=== PATIENT | female | born 1955 | race Caucasian/White ===

== ENCOUNTER → 2018-06-11 08:20 | Outpatient (CLI) | payer OTHER, SELFPAY ==
--- NOTE | 2018-06-11 | DI.MG.S_ITS ---
BILATERAL DIGITAL SCREENING MAMMOGRAM 3D/2D WITH CAD: 06/11/2018 CLINICAL: Routine screening. Comparison is made to exams dated: 08/14/2016 mammogram, 10/30/2014 mammogram, and 06/23/2012 mammogram - [facility]. The tissue of both breasts is heterogeneously dense. This may lower the sensitivity of mammography. Current study was also evaluated with a Computer Aided Detection (CAD) system. No significant masses, calcifications, or other findings are seen in either breast. There has been no significant interval change. IMPRESSION: NEGATIVE There is no mammographic evidence of malignancy. A 1 year screening mammogram is recommended. This exam was interpreted at Station ID: [id number]. NOTE: For mammograms, a report in lay terms will be sent to the patient. Approximately 15% of breast malignancies will not be visualized mammographically. In the management of a palpable breast mass, a negative mammogram must not discourage biopsy of a clinically suspicious lesion. Electronically Signed By: Wyatt hoff/daniel:06/11/2018 13:57:19 letter sent: Normal Exam ACR BI-RADS Category 1: Negative 3341F
== END ==
PROVIDERS: PCP Family Medicine; Visit Provider Family Medicine
DX: Z12.31 Encounter for screening mammogram for malignant neoplasm of breast (principal)
CPT/HCPCS: 77063; 77067

== ENCOUNTER → 2020-06-16 13:33 | Outpatient (CLI) | payer OTHER, SELFPAY ==
--- NOTE | 2020-06-16 13:38 | DI.MG.S_ITS ---
BILATERAL DIGITAL SCREENING MAMMOGRAM 3D/2D WITH CAD: 06/16/2020 Comparison is made to exams dated: 06/11/2018 mammogram, 08/14/2016 mammogram, and 10/30/2014 mammogram - [facility]. The tissue of both breasts is heterogeneously dense. This may lower the sensitivity of mammography. Current study was also evaluated with a Computer Aided Detection (CAD) system. No significant masses, calcifications, or other findings are seen in either breast. There has been no significant interval change. IMPRESSION: NEGATIVE There is no mammographic evidence of malignancy. A 1 year screening mammogram is recommended. This exam was interpreted at Station ID: [id number]. NOTE: For mammograms, a report in lay terms will be sent to the patient. Approximately 15% of breast malignancies will not be visualized mammographically. In the management of a palpable breast mass, a negative mammogram must not discourage biopsy of a clinically suspicious lesion. Electronically Signed By: Ana Luisa johnson/daniel:06/18/2020 09:00:30 letter sent: Normal Exam ACR BI-RADS Category 1: Negative 3341F
== END ==
PROVIDERS: PCP Family Medicine; Referring Provider Family Medicine; Visit Provider Family Medicine
DX: Z12.31 Encounter for screening mammogram for malignant neoplasm of breast (principal)
CPT/HCPCS: 77063; 77067

== ENCOUNTER → 2020-09-12 10:07 | Outpatient (CLI) | payer OTHER, SELFPAY ==
[2020-09-12] MEDS: COVID-19 VACC #1, MRNA(MOD) 100 MCG/0.5 ML VIAL IM (10:17)
== END ==
PROVIDERS: PCP Family Medicine; Visit Provider Internal Medicine
DX: Z23 Encounter for immunization (principal)
CPT/HCPCS: 0011A; 91301

== ENCOUNTER → 2020-10-10 09:36 | Outpatient (CLI) | payer OTHER, SELFPAY ==
[2020-10-10] MEDS: COVID-19 VACC #2, MRNA(MOD) 100 MCG/0.5 ML VIAL IM (09:45)
== END ==
PROVIDERS: PCP Family Medicine; Visit Provider Internal Medicine
DX: Z23 Encounter for immunization (principal)
CPT/HCPCS: 0012A; 91301

== ENCOUNTER → 2023-08-20 11:40 | Outpatient (CLI) | payer MEDICARE, OTHER, SELFPAY ==
--- NOTE | 2023-08-20 11:43 | DI.MG.S_ITS ---
BILATERAL DIGITAL SCREENING MAMMOGRAM 3D/2D WITH CAD: 08/20/2023 CLINICAL: Routine screening. Comparison is made to exams dated: 06/16/2020 mammogram, 06/11/2018 mammogram, and 08/14/2016 mammogram - [facility]. Both breasts are heterogeneously dense, which may obscure small masses (category c / 51-75% glandular tissue). Current study was also evaluated with a Computer Aided Detection (CAD) system. No significant masses, calcifications, or other findings are seen in either breast. There has been no significant interval change. IMPRESSION: NEGATIVE There is no mammographic evidence of malignancy. A 1 year screening mammogram is recommended. Based on the Tyrer Cuzick model (a risk assessment model) the patient's lifetime risk is 9.6% and her 10 year risk is 4.8%. According to the ACR, ACS, and NCCN guidelines, an annual breast MRI exam along with mammogram is recommended if the patient's lifetime risk is 20% or greater. This exam was interpreted at Station ID: [id number]. NOTE: For mammograms, a report in lay terms will be sent to the patient. Approximately 15% of breast malignancies will not be visualized mammographically. In the management of a palpable breast mass, a negative mammogram must not discourage biopsy of a clinically suspicious lesion. Electronically Signed By: Andrea almodovar/daniel:08/20/2023 12:47:30 letter sent: Normal Exam ACR BI-RADS Category 1: Negative 3341F
== END ==
PROVIDERS: PCP Internal Medicine; Referring Provider Internal Medicine; Visit Provider Internal Medicine
DX: Z12.31 Encounter for screening mammogram for malignant neoplasm of breast (principal); R92.333 Mammographic heterogeneous density, bilateral breasts
CPT/HCPCS: 77063; 77067

== ENCOUNTER 2024-08-26 20:32 | Emergency (ER) | payer MEDICARE, OTHER, SELFPAY ==
[2024-08-26 20:40] VITALS: BP 147/79; PULSE 109; RESP 18; TEMP 36.4; O2SAT 94; BMI 28.3
--- NOTE | 2024-08-26 20:46 | EKG_ITS ---
[place] [address] [address] [place] [address] Test Date: 2024-08-26 Pat Name: Bonita Kasper Department: [facility] Room: Gender: Female Home Health Travel Ot: HAYDEN : 1955 Requested By: Order Number: [id number] Reading MD: Constantin Price Measurements Intervals [place] Rate: 100 P: 66 VA: 152 QRS: 78 QRSD: 78 T: 23 QT: 330 QTc: 425 Interpretive Statements Normal sinus rhythm Nonspecific ST abnormality Electronically Signed On 08-27-2024 18:31:42 PDT by Constantin Price
[2024-08-26] MEDS: MAG HYDROX/ALUMINUM/SIMETH SUS 20 ML, LIDOCAINE VISCOUS 2% 15 ML PO (21:02)
[2024-08-26 21:19] LABS: Add Manual Diff / Slide Review NO; Basophils Absolute Auto 100 /uL (0-100); Eosinophils Absolute Auto 100 /uL (0-450); Eosinophils Percent Auto 2.5 % (2-4); Hematocrit 38.1 % (36-46); Hemoglobin 13.1 g/dL (12.0-16.0); Lymphocytes Absolute Auto 1200 /uL (1100-4500); Lymphocytes Percent Auto 20.9 % (25-40); Mean Corpuscular HGB Conc 34.2 % (30-36); Mean Corpuscular Hemoglobin 30.5 PG (26-34); Mean Corpuscular Volume 89.1 fL (80-100); Monocytes Absolute Auto 400 /uL (0-900); Monocytes Percent Auto 6.9 % (3-14); Neutrophils Absolute Auto 4000 /uL (1500-7000); Neutrophils Percent Auto 68.7 % (50-75); Platelet Count 252 X10^3/uL (150-400); Red Blood Cell Count 4.28 X10^6/uL (4.0-5.2); Red Cell Distribution Width 13.2 % (11.6-14.8); White Blood Cell Count 5.8 X10^3/uL (4.5-11.0)
[2024-08-26 21:26] LABS: Alanine Aminotransferase 25 IU/L (<35); Albumin 4.2 g/dL (3.5-5.0); Albumin Globulin Ratio 1.5 (1.0-2.8); Alkaline Phosphatase 44 U/L (38-126); Aspartate Aminotransferase 30 IU/L (14-36); BUN Creatinine Ratio 14.3 (6-22); Bilirubin Total 0.6 mg/dL (0.2-1.3); Blood Urea Nitrogen 11 mg/dL (7-17); Calcium 9.4 mg/dL (8.4-10.2); Carbon Dioxide 23 mmol/L (22-32); Chloride 103 mmol/L (98-107); Creatine Kinase 70 U/L (30-135); Estimated Glomerular Filt Rate > 60 mL/min (>60); Globulin 2.8 g/dL (1.7-4.1); Glucose 192 mg/dL (80-110); HEMOLYSIS < 15 (0-50); Potassium 3.6 mmol/L (3.4-5.1); Sodium 134 mmol/L (137-145)
[2024-08-26 21:37] LABS: Troponin I < 0.012 ng/mL (0.01-0.034)
--- NOTE | 2024-08-26 21:49 | PC.NURSE ---
Pt states heart burn is now gone s/p GI cocktail
[2024-08-26 22:57] VITALS: BP 140/76; PULSE 81; O2SAT 95
[2024-08-26 23:00] VITALS: BP 133/72; PULSE 87; O2SAT 97
[2024-08-26 23:30] VITALS: BP 131/76; PULSE 82; O2SAT 97
--- NOTE | 2024-08-26 23:30 | ED_ITS ---
HPI - Nausea/Vomiting/Diarrhea General Chief complaint: Nausea/Vomiting/Diarrhea Stated complaint: Heartburn, nausea, loss of appetite 156/93 BP Time Seen by Provider: 08/26/24 23:30 Source: patient Mode of arrival: Ambulatory History of Present Illness HPI Narrative: 68-year-old female without any significant known past medical history presents to the emergency department from home for evaluation of heartburn x2 days. She states that she has a history of heartburn that normally resolves with Tums but symptoms seem to be a little worse than normal therefore decided come into the ED for further evaluation treatment. She states that she has increased the amount of NSAIDs she has been taking after she had a knee surgery done on 08/22/2024 however she denies any actual chest pain shortness of breath fever chills nausea vomiting abdominal pain or any other GI/ symptoms time. Related Data Previous Rx's Medication Instructions Recorded famotidine 20 mg tablet 20 mg PO DAILY 1 month #30 tabs 08/27/24 Allergies Allergy/AdvReac Type Severity Reaction Status Date / Time No Known Drug Allergies Allergy Unverified 12/01/23 14:07 Review of Systems Review of Systems Narrative: General: Denies fever, chills, weight loss HEENT: Denies headache, eye drainage, eye irritation, head trauma, sore throat, voice change Cardiovascular: Denies any chest pain, palpitations, tachycardia Respiratory: Denies any shortness of breath, cough, wheeze, stridor GI/: Positive epigastric abdominal pain, denies nausea, vomiting, diarrhea, bright red blood per rectum, melanotic stools, urinary frequency, urinary retention, dysuria, hematuria MSK: Denies any joint pain, muscle pains, swelling Skin: Denies any rashes, lesions, discoloration Neuro: Denies any headache, lightheadedness, dizziness, fainting, weakness Psych: Denies SI/HI Patient History Social History Smoking Status: Former smoker Smoking Status: Former smoker Exam Narrative Exam Narrative: General: Cooperative, comfortable, well-developed, not in acute distress HEENT: Normocephalic, atraumatic, PERRLA, normal sclera, eyelids normal, Neck: Active full range of motion, atraumatic Chest: Normal to inspection, negative crepitus, no overlying erythema ecchymosis Respiratory: Normal respiratory effort, not in acute respiratory distress, clear to auscultation bilaterally negative cough, wheeze, tachypnea, rhonchi, rales Cardiology: Regular rate rhythm negative gallop, murmur, rubs GI/: Normal to inspection, soft, nonrigid, no tenderness to palpation, exam deferred MSK: Full range of active range of motion of all 4 extremities, atraumatic Skin: No rashes lesions noted Neuro: Alert awake oriented x3, moves all 4 extremities spontaneously, cranial nerves intact, able to answer all questions appropriately follows commands appropriately Psych: Cooperative, negative suicidal or homicidal ideations Initial Vital Signs Initial Vital Signs: Vital Signs Temperature 97.6 F 08/26/24 20:40 Pulse Rate 109 H 08/26/24 20:40 Respiratory Rate 18 08/26/24 20:40 Blood Pressure 147/79 H 08/26/24 20:40 Pulse Oximetry 94 08/26/24 20:40 Oxygen Delivery Method Room Air 08/26/24 20:40 Course Orders Ordered: ED Orders 08/26/24 20:46 EKG-12 Lead Stat 08/26/24 21:00 CBC Auto Diff [Complete Blood Count AUTO DIFF] Stat CMP [Comprehensive Metabolic Panel] Stat Troponin & CK Cardiac Panel Stat 08/27/24 00:15 CT abdomen pelvis w con Stat CXR [XR chest 1V] Stat Lipase Stat MAG [Magnesium] Stat Discontinued Medications Al Hydrox/Mg Hydrox/Simethicone 20 ml/ Lidocaine HCl 15 ml 0 ml PO NOW ONE Stop: 08/26/24 20:48 Last Admin: 08/26/24 21:02 Dose: 35 ml Documented By: LS Vital Signs Vital signs: Vital Signs - 8 hr 08/26/24 20:40 08/26/24 22:57 08/26/24 22:57 Temperature 97.6 F Pulse Rate 109 H 81 Respiratory Rate 18 Blood Pressure 147/79 H 140/76 Pulse Oximetry 94 95 Oxygen Delivery Method Room Air 08/26/24 23:00 08/26/24 23:00 08/26/24 23:30 Temperature Pulse Rate 87 Respiratory Rate Blood Pressure 133/72 131/76 Pulse Oximetry 97 Oxygen Delivery Method 08/26/24 23:30 Temperature Pulse Rate 82 Respiratory Rate Blood Pressure Pulse Oximetry 97 Oxygen Delivery Method MDM - Nausea/Vomiting/Diarrhea Differential Diagnosis Differential diagnosis: Likely other (ACS, pneumonia, pancreatitis, GERD,) Lab Data 08/26/24 21:00 08/26/24 21:00 Labs: Lab Results 08/26/24 Range/Units 21:00 WBC 5.8 (4.5-11.0) X10^3/uL RBC 4.28 (4.0-5.2) X10^6/uL Hgb 13.1 (12.0-16.0) g/dL Hct 38.1 (36-46) % MCV 89.1 (80-100) fL MCH 30.5 (26-34) PG MCHC 34.2 (30-36) % RDW 13.2 (11.6-14.8) % Plt Count 252 (150-400) X10^3/uL Neut % (Auto) 68.7 (50-75) % Lymph % (Auto) 20.9 L (25-40) % [place] % (Auto) 6.9 (3-14) % Eos % (Auto) 2.5 (2-4) % Baso % (Auto) 1.0 (0-2) % Neut # (Auto) 4000 (2803-9824) /uL Lymph # (Auto) 1200 (4976-1833) /uL [place] # (Auto) 400 (0-900) /uL Eos # (Auto) 100 (0-450) /uL Baso # (Auto) 100 (0-100) /uL Sodium 134 L (137-145) mmol/L Potassium 3.6 (3.4-5.1) mmol/L Chloride 103 (98-107) mmol/L Carbon Dioxide 23 (22-32) mmol/L BUN 11 (7-17) mg/dL Creatinine 0.77 (0.52-1.04) mg/dL Estimated GFR > 60 (>60) mL/min BUN/Creatinine Ratio 14.3 (6-22) Glucose 192 H (80-110) mg/dL Calcium 9.4 (8.4-10.2) mg/dL Magnesium 1.7 (1.6-2.3) mg/dL Total Bilirubin 0.6 (0.2-1.3) mg/dL AST 30 (14-36) IU/L ALT 25 (<35) IU/L Alkaline Phosphatase 44 (38-126) U/L Total Creatine Kinase 70 (30-135) U/L Troponin I < 0.012 (0.01-0.034) ng/mL Total Protein 7.0 (6.3-8.2) g/dL Albumin 4.2 (3.5-5.0) g/dL Globulin 2.8 (1.7-4.1) g/dL Albumin/Globulin Ratio 1.5 (1.0-2.8) Lipase 104 (23-300) U/L Imaging Data Chest x-ray: Radiologist's Impression: [place] [address] XRay Report Signed Patient: Bonita Kasper MR#: [id number] : 1955 Acct:[id number] Age/Sex: 68 / F Date of Service: 08/27/24 Loc: ED Accession Number: [id number] Procedure: XR chest 1V Ordering Provider: Constantin Belcher D.O. PROCEDURE: XR CHEST 1V INDICATIONS: epigastric pain TECHNIQUE: One view of the chest was acquired. COMPARISON: None. FINDINGS AND IMPRESSION: On this single view study, no consolidation or pleural effusion. Normal heart size. Degenerative osseous changes. CT scan - abdomen/pelvis: Radiologist's Impression: [place] [address] CT Scan Report Signed Patient: Bonita Kasper MR#: [id number] : 1955 Acct:[id number] Age/Sex: 68 / F Date of Service: 08/27/24 Loc: ED Accession Number: [id number] Procedure: CT abdomen pelvis w con Ordering Provider: Constantin Belcher D.O. PROCEDURE: CT ABDOMEN PELVIS W CON INDICATIONS: epigastric pain TECHNIQUE: After the administration of intravenous contrast, axial sections acquired from the lung bases to the pubic symphysis. Coronal and sagittal reformats were performed. For radiation dose reduction, the following was used: automated exposure control, adjustment of mA and/or kV according to patient size. COMPARISON: None. FINDINGS: Image quality: Diagnostic Lower chest: Unremarkable lung bases. Small hiatal hernia. Normal heart size. Liver: Unremarkable Gallbladder and biliary system: Unremarkable, nondilated Pancreas: No ductal dilation Spleen: Nonenlarged Adrenals: No discrete nodules Kidneys: No solid mass. No hydronephrosis. Vessels and lymph nodes: The main portal vein appears patent. No abdominal aortic aneurysm. [id number] atherosclerotic calcifications seen in the aorta and its branches. No pathologic lymph nodes by size criteria. Bowel and peritoneum: Wall thickening is seen in the distal stomach, possibly with a small ulceration in the anterior aspect (2/48). No bowel obstruction. The appendix appears nondilated. Overall fecal loading is moderate. No ascites. Body wall: Unremarkable Pelvis: Bladder is unremarkable. Reproductive organs are unremarkable on limited CT evaluation. Bones: No aggressive appearing osseous abnormality. There are degenerative changes. IMPRESSION: Focal wall thickening and possible ulceration in the distal stomach. Ulcer disease and gastritis are suspected, consider endoscopic correlation if clinically indicated. Small hiatal hernia. No bowel obstruction. Moderate fecal loading in the colon. ECG Data Interpretation: EKG interpreted by ED physician sinus tachycardia 100 beats per minute QTC [address] changes no STEMI MDM Narrative Medical decision making narrative: 68-year-old female without any significant past medical history comes into the ED for evaluation of epigastric pain, she describes it as burning in nature, states that she does not have a diagnosis of acid reflux but states that it feels very similar to heartburn, she states it has been ongoing for the past 2 days get some relief with Tums but due to persistent symptoms decided come into the ED for further evaluation treatment. Chest x-ray without any acute cardiopulmonary abnormality troponin negative EKG nonischemic lab work unremarkable CT scan does show gastritis/ulcer without perforation symptoms more likely secondary to this. Patient was instructed follow up with the primary care GI she will be started on a PPI daily strict return precautions given she verbalized understanding of this and agrees to being discharged home with outpatient follow up Discharge Plan Departure Patient Disposition: Home Clinical Impression: Gastritis Instructions: DI for Gastric Ulcer Activity Restrictions/Additional Instructions: Please follow up with primary care and Gastroenterology Please read the discharge instructions sheet carefully and bring all papers to all doctor follow-up visits, as it may contain information that your doctor may want to see. Disease processes change and evolve, if your symptoms worsen or if you develop any new symptoms that are concerning to you please return for evaluation. Your evaluation today does not show any evidence of any life- threatening/serious illnesses requiring admission to the hospital or surgery. Please follow-up with your doctor for re-evaluation in approximately 1 day. Seek immediate medical attention for any worrisome symptoms. *If you do not have a primary care provider please contact the [facility] Resource line at [phone]. They will ask some questions about your medical history and help get you set up with a doctor in the community. Prescriptions: New famotidine 20 mg tablet 20 mg PO DAILY 30 Days Qty: 30 0RF Referrals: Roland Waters MD [Primary Care Provider] - Piyush Henning MD [Non-Staff] - Stand Alone Forms: Patient Portal/API/Survey
[2024-08-27] VITALS: BP 163/83; PULSE 74; O2SAT 96
--- NOTE | 2024-08-27 00:15 | DI.CT.S_ITS ---
PROCEDURE: CT ABDOMEN PELVIS W CON INDICATIONS: epigastric pain TECHNIQUE: After the administration of intravenous contrast, axial sections acquired from the lung bases to the pubic symphysis. Coronal and sagittal reformats were performed. For radiation dose reduction, the following was used: automated exposure control, adjustment of mA and/or kV according to patient size. COMPARISON: None. FINDINGS: Image quality: Diagnostic Lower chest: Unremarkable lung bases. Small hiatal hernia. Normal heart size. Liver: Unremarkable Gallbladder and biliary system: Unremarkable, nondilated Pancreas: No ductal dilation Spleen: Nonenlarged Adrenals: No discrete nodules Kidneys: No solid mass. No hydronephrosis. Vessels and lymph nodes: The main portal vein appears patent. No abdominal aortic aneurysm. [id number] atherosclerotic calcifications seen in the aorta and its branches. No pathologic lymph nodes by size criteria. Bowel and peritoneum: Wall thickening is seen in the distal stomach, possibly with a small ulceration in the anterior aspect (2/48). No bowel obstruction. The appendix appears nondilated. Overall fecal loading is moderate. No ascites. Body wall: Unremarkable Pelvis: Bladder is unremarkable. Reproductive organs are unremarkable on limited CT evaluation. Bones: No aggressive appearing osseous abnormality. There are degenerative changes. IMPRESSION: Focal wall thickening and possible ulceration in the distal stomach. Ulcer disease and gastritis are suspected, consider endoscopic correlation if clinically indicated. Small hiatal hernia. No bowel obstruction. Moderate fecal loading in the colon. Other findings above. Dictated by: Sp Michel M.D. on 08/27/2024 at 1:07 Approved by: Sp Michel M.D. on 08/27/2024 at 1:11
--- NOTE | 2024-08-27 00:15 | DI.RAD.S_ITS ---
PROCEDURE: XR CHEST 1V INDICATIONS: epigastric pain TECHNIQUE: One view of the chest was acquired. COMPARISON: None. FINDINGS AND IMPRESSION: On this single view study, no consolidation or pleural effusion. Normal heart size. Degenerative osseous changes. Dictated by: Sp Michel M.D. on 08/27/2024 at 1:07 Approved by: Sp Michel M.D. on 08/27/2024 at 1:07
[2024-08-27 00:26] LABS: Lipase 104 U/L (23-300); Magnesium 1.7 mg/dL (1.6-2.3)
[2024-08-27 00:30] VITALS: BP 154/78; PULSE 82; O2SAT 97
[2024-08-27 01:38] VITALS: BP 149/81; PULSE 82; RESP 16; O2SAT 98
== END 2024-08-27 01:40 | disposition home or self-care (01) ==
PROVIDERS: Emergency Provider Student in an Organized Health Care Education/Training Program; PCP Internal Medicine
DX: K29.70 Gastritis, unspecified, without bleeding (principal); R00.0 Tachycardia, unspecified
CPT/HCPCS: 36415; 71045; 74177; 80053; 82550; 83690; 83735; 84484; 85025; 93005; 99283; 99284; Q9967

== ENCOUNTER → 2024-11-03 07:11 | Outpatient (CLI) | payer OTHER, SELFPAY ==
[2024-11-03 07:44] LABS: Add Manual Diff / Slide Review NO; Basophils Absolute Auto 100 /uL (0-100); Basophils Percent Auto 1.2 % (0-2); Eosinophils Absolute Auto 200 /uL (0-450); Eosinophils Percent Auto 3.9 % (2-4); Hematocrit 38.2 % (36-46); Hemoglobin 13.1 g/dL (12.0-16.0); Lymphocytes Absolute Auto 1400 /uL (1100-4500); Lymphocytes Percent Auto 30.4 % (25-40); Mean Corpuscular HGB Conc 34.2 % (30-36); Mean Corpuscular Hemoglobin 30.9 PG (26-34); Mean Corpuscular Volume 90.2 fL (80-100); Monocytes Absolute Auto 500 /uL (0-900); Monocytes Percent Auto 9.8 % (3-14); Neutrophils Absolute Auto 2500 /uL (1500-7000); Neutrophils Percent Auto 54.7 % (50-75); Platelet Count 225 X10^3/uL (150-400); Red Blood Cell Count 4.24 X10^6/uL (4.0-5.2); Red Cell Distribution Width 13.6 % (11.6-14.8); White Blood Cell Count 4.6 X10^3/uL (4.5-11.0)
[2024-11-03 08:09] LABS: Alanine Aminotransferase 22 IU/L (<35); Albumin 4.1 g/dL (3.5-5.0); Albumin Globulin Ratio 1.7 (1.0-2.8); Alkaline Phosphatase 46 U/L (38-126); Aspartate Aminotransferase 24 IU/L (14-36); BUN Creatinine Ratio 18.3 (6-22); Bilirubin Total 0.7 mg/dL (0.2-1.3); Blood Urea Nitrogen 15 mg/dL (7-17); Calcium 9.3 mg/dL (8.4-10.2); Carbon Dioxide 21 mmol/L (22-32); Chloride 109 mmol/L (98-107); Cholesterol 239 mg/dL (140-199); Estimated Glomerular Filt Rate > 60 mL/min (>60); Globulin 2.4 g/dL (1.7-4.1); Glucose 90 mg/dL (70-99); HDL Cholesterol 55 mg/dL (40-60); HEMOLYSIS < 15 (0-50); LDL Cholesterol Calculated 161 mg/dL (<100); Potassium 4.3 mmol/L (3.4-5.1); Sodium 138 mmol/L (137-145); Total Protein 6.5 g/dL (6.3-8.2); Triglycerides 113 mg/dL (35-150)
[2024-11-04 07:09] LABS: C Peptide 3.1 ng/mL (1.1-4.4); Insulin Level Total 16.7 uIU/mL (2.6-24.9)
== END ==
LOC: LAB 07:13
PROVIDERS: PCP Internal Medicine; Referring Provider Internal Medicine; Visit Provider Internal Medicine
DX: Z00.00 Encounter for general adult medical examination without abnormal findings (principal); Z13.6 Encounter for screening for cardiovascular disorders
CPT/HCPCS: 36415; 80053; 80061; 83525; 84681; 85025

== ENCOUNTER → 2025-04-28 14:21 | Outpatient (CLI) | payer OTHER, SELFPAY ==
--- NOTE | 2025-04-28 14:22 | DI.RAD.S_ITS ---
PROCEDURE: XR ANKLE RT MIN 3V INDICATIONS: Posterior/lateral ankle pain, 1 month. Rolled ankle TECHNIQUE: 3 views of the ankle were acquired. COMPARISON: None. FINDINGS: Bones: There is a minimally displaced fracture of the lateral malleolus, below the syndesmosis. At the level of the talus, there is a lucent lesion with sclerotic center. Soft tissues: Moderate tibiotalar joint effusion. Achilles tendon appears normal. IMPRESSION: Hinds type a distal fibula fracture, without unstable fracture features. Osteochondral defect versus osteoid osteoma of the talar dome. Consider MRI for further characterization. Dictated by: Manjit Duran M.D. on 04/29/2025 at 10:17 Approved by: Manjit Duran M.D. on 04/29/2025 at 10:18
== END ==
PROVIDERS: PCP Internal Medicine; Referring Provider Nurse Practitioner Family; Visit Provider Nurse Practitioner Family
DX: S82.61XA Displaced fracture of lateral malleolus of right fibula, initial encounter for closed fracture (principal); M25.471 Effusion, right ankle; X50.1XXA Overexertion from prolonged static or awkward postures, initial encounter
CPT/HCPCS: 73610

== ENCOUNTER → 2025-05-15 08:18 | Outpatient (CLI) | payer OTHER, SELFPAY ==
--- NOTE | 2025-05-15 08:42 | DI.MRI.S_ITS ---
PROCEDURE: MR ANKLE RT WO CON INDICATIONS: r/o peroneal tendon tear/eval osteochondral lesion TECHNIQUE: Noncontrast sagittal T1 spin echo and T2 fast spin echo with fat saturation, axial proton density fast spin echo and T2 fast spin echo with fat saturation, coronal T1 spin echo and T2 fast spin echo with fat saturation through the ankle/hindfoot. COMPARISON: [facility], CR, XR ANKLE RT MIN 3V, 04/28/2025, 14:26. FINDINGS: Image quality: Excellent. Bones and joints: Osteochondral defect involving posterior medial aspect of talar dome measures up to 9 x 12 x 5 mm in size with potential unstable fragment measures 10 x 7 x 2 mm in size series 6, image 16 and series 7, image 16. Surrounding edema is seen. Small osteochondral injury is also noted inferior weight-bearing portion of talus anterior facet of subtalar joint measures 2-3 mm in size with mild surrounding edema. There is a subacute appearing transverse fracture through lateral malleolus with extensive marrow edema and partial bony union at fracture site. No other fracture or dislocation. Small joint effusion, no loose bodies. Mild midfoot and hindfoot joint osteoarthritis. Well-defined plantar calcaneal enthesophyte is seen. Medial structures: The posterior tibialis tendon is thickened with moderate amount of fluid distending tendon she is at the level of mid to distal talus and talonavicular joint. The flexor digitorum longus, and flexor hallucis longus tendons are intact. The posterior tibial neurovascular bundle appears normal within the tarsal tunnel, without extrinsic mass effect. The deltoid ligament , and spring ligament are thickened with intrasubstance T2 hyperintense signal . Lateral structures: The anterior talofibular ligament is thickened. The calcaneofibular, and posterior talofibular ligaments appear intact. More superiorly, the anterior and posterior tibial fibular ligaments are thickened with intrasubstance T2 hyperintense signal. The tibiofibular syndesmosis is normal in width at 2 mm or less. The peroneus longus and brevis tendons are mildly thickened with small amount of fluid distending tendon sheath at the level of lateral malleolus extending to their distal insertions. The sinus tarsi demonstrates normal fatty signal, without edema, fibrosis, or cyst formation. Anterior structures: The tibialis anterior, extensor hallucis longus, and extensor digitorum longus tendons appear intact. The dorsal talonavicular ligament appears intact. Posterior and plantar structures: Achilles tendon is intact. Medial and lateral bands of the plantar fascia are of normal thickness. No abductor digiti quinti muscle atrophy to suggest [place] neuropathy. IMPRESSION: 1. Subacute appearing transverse fracture through distal fibular shaft/lateral malleolus with surrounding edema. 2. Osteochondral injury involving posterior medial aspect of talar dome with potential unstable fragment as above. Smaller osteochondral injury involving inferior weight-bearing portion of talus adjacent to subtalar joint as above. 3. Small joint effusion, no loose bodies. 4. Low-grade tenosynovitis involving posterior tibialis tendon and peroneus tendons as detailed above. 5. Low-grade sprain/intrasubstance partial-thickness tear involving deltoid ligament and spring ligament. Low-grade ATFL sprain. Low-grade sprain/intrasubstance partial-thickness tear also involving anterior and posterior bands. No full- thickness ankle ligament rupture. Dictated by: Samuel Mari M.D. on 05/15/2025 at 9:07 Approved by: Samuel Mari M.D. on 05/15/2025 at 9:13
== END ==
PROVIDERS: PCP Internal Medicine; Referring Provider Internal Medicine; Visit Provider Orthopaedic Surgery
DX: S82.61XA Displaced fracture of lateral malleolus of right fibula, initial encounter for closed fracture (principal); S93.421A Sprain of deltoid ligament of right ankle, initial encounter; S93.491A Sprain of other ligament of right ankle, initial encounter; M65.971 Unspecified synovitis and tenosynovitis, right ankle and foot; M89.9 Disorder of bone, unspecified; M94.9 Disorder of cartilage, unspecified; M25.471 Effusion, right ankle
CPT/HCPCS: 73721